=== PATIENT | male | born 1945 | race Caucasian/White ===

== ENCOUNTER 2020-07-20 15:53 | Outpatient (CLI) | payer OTHER | END 2020-07-20 20:18 | disposition home or self-care (01) | LOC: SRD 15:53 | PROVIDERS: ATTEND Internal Medicine | DX: T18.2XXA Foreign body in stomach, initial encounter (principal); M47.816 Spondylosis without myelopathy or radiculopathy, lumbar region; X58.XXXA Exposure to other specified factors, initial encounter; Y93.89 Activity, other specified; Y92.89 Other specified places as the place of occurrence of the external cause; Y99.8 Other external cause status | CPT/HCPCS: 71046-TC; 74018 ==

== ENCOUNTER 2020-07-23 09:32 | Outpatient (CLI) | payer OTHER | END 2020-07-23 21:24 | disposition home or self-care (01) | LOC: SRD 09:32 | PROVIDERS: ATTEND Internal Medicine | DX: T18.2XXA Foreign body in stomach, initial encounter (principal); M51.36 Other intervertebral disc degeneration, lumbar region; X58.XXXA Exposure to other specified factors, initial encounter; Y93.89 Activity, other specified; Y92.89 Other specified places as the place of occurrence of the external cause; Y99.8 Other external cause status | CPT/HCPCS: 74018 ==

== ENCOUNTER 2020-07-29 10:07 | Outpatient (CLI) | payer OTHER | END 2020-07-30 19:25 | disposition home or self-care (01) | LOC: SRD 10:07 | PROVIDERS: ATTEND Internal Medicine | DX: T18.9XXA Foreign body of alimentary tract, part unspecified, initial encounter (principal); X58.XXXA Exposure to other specified factors, initial encounter; Y93.89 Activity, other specified; Y92.89 Other specified places as the place of occurrence of the external cause; Y99.8 Other external cause status | CPT/HCPCS: 74018 ==